=== PATIENT | male | born 1945 | race Caucasian/White ===

== ENCOUNTER 2017-04-13 10:12 | Observation (INO) | payer OTHER ==
[~2017-04-13] VITALS: Ht 182.9 cm; Wt 106.5 kg
[~2017-04-13 10:12] MED LIST: AMARYL4 MG PO; BACTRIM,SEPT1 TABLET PO; BENTYL20 MG PO; CEPHALEXIN500 MG PO; GLUCOPHAGE500 MG PO; LANTUS 10100 UNITS/ SC; LIPITOR10 MG PO; LOTREL 10/21 CAPSULE PO; LOTREL 5-40 MG1 EACH PO; METFORMIN HCL1000 MG PO; PRILOSEC20 MG PO; ZOFRAN4 MG PO
[2017-04-13 11:13] LABS: HEMATOCRIT 33.1 % (38.0-50.0); MCH 32.1 PG (29.0-34.0); MCHC 35.3 G/DL (30.0-36.0); MCV 90.9 FL (86-99); MEAN PLAT.VOLUME 9.4 uM^3 (9.0-12.4); PLATELET COUNT 222 K/uL (156-360); RBC DIS.WIDTH-CV 12.1 % (11.8-14.6); RBC DIS.WIDTH-SD 39.8 % (39-53); RED BLOOD COUNT 3.64 M/uL (4.00-5.50); WHITE BLOOD COUNT 6.4 K/uL (4.1-10.2)
[2017-04-13 11:24] LABS: CHLORIDE 106 mEq/L (99-109); POTASSIUM 5.3 mEq/L (3.7-5.4); SODIUM 141 mEq/L (136-147)
[2017-04-13 11:26] LABS: GLUCOSE 279 mg/dL (70-99)
[2017-04-13 11:27] LABS: ANION GAP 8 MEQ/L (2-14)
[2017-04-13] MEDS ORDERED: ACID REDUCER 1150 MG PO (11:27)
[2017-04-13 11:28] LABS: TOTAL BILIRUBIN 1.3 mg/dL (0.0-1.0)
[2017-04-13] MEDS ORDERED: LANTUS 3 M100 UNITS1 SC (11:28)
[2017-04-13 11:30] LABS: ALKALINE PHOSPHATASE 68 IU/L (3-129); GFR ESTIMATE (CALCULATED) > 59 mL/min/
[2017-04-13 11:31] LABS: UREA NITROGEN (BUN) 28 mg/dL (9-23)
[2017-04-13 15:26] VITALS: BP 126/73
[2017-04-13 16:56] LABS: HEMATOCRIT 28.6 % (38.0-50.0); MCV 90.2 FL (86-99)
[2017-04-13 17:37] LABS: POINT-OF-CARE METER ID UU13113831
[2017-04-13 20:20] VITALS: BP 129/92
[2017-04-13 22:41] LABS: HEMATOCRIT 26.3 % (38.0-50.0); MCV 90.1 FL (86-99)
[2017-04-13 23:00] VITALS: BP 117/67
[2017-04-14 00:04] LABS: POINT-OF-CARE METER ID UU13113831
[2017-04-14 03:42] VITALS: BP 136/68
[2017-04-14 05:39] LABS: HEMATOCRIT 26.5 % (38.0-50.0); MCHC 36.2 G/DL (30.0-36.0); MCV 91.1 FL (86-99); MEAN PLAT.VOLUME 9.4 uM^3 (9.0-12.4); PLATELET COUNT 170 K/uL (156-360); RBC DIS.WIDTH-CV 12.4 % (11.8-14.6); RBC DIS.WIDTH-SD 40.6 % (39-53); WHITE BLOOD COUNT 5.2 K/uL (4.1-10.2)
[2017-04-14 05:57] LABS: ALKALINE PHOSPHATASE 51 IU/L (3-129); ANION GAP 6 MEQ/L (2-14); CHLORIDE 108 MEQ/L (99-109); GFR ESTIMATE (CALCULATED) > 59 mL/min/; GLUCOSE 171 mg/dL (70-99); POTASSIUM 4.7 MEQ/L (3.7-5.4); SAMPLE HEMOLYSIS CHECK 0; SAMPLE ICTERIC CHECK 0; SAMPLE LIPEMIA CHECK 0; SODIUM 140 MEQ/L (136-147); TOTAL BILIRUBIN 1.3 MG/DL (0.0-1.0); UREA NITROGEN (BUN) 18 mg/dL (9-23)
[2017-04-14 06:11] LABS: POINT-OF-CARE METER ID UU13113700
[2017-04-14 06:32] LABS: RED BLOOD COUNT 2.91 M/uL (4.00-5.50)
[2017-04-14 09:15] VITALS: BP 127/76
[2017-04-14 10:48] VITALS: BP 126/76
[2017-04-14 10:57] LABS: HEMATOCRIT 27.3 % (38.0-50.0); MCV 90.1 FL (86-99)
[2017-04-14 11:56] LABS: POINT-OF-CARE METER ID UU13113831
[2017-04-17] MEDS ORDERED: STOMACH MED PO (16:11)
== END 2017-04-14 13:54 | disposition home or self-care (01) ==
LOC: EME 10:12 → EDOF 13:58 → ENRESERV 14:01 → 5WEST 15:22
PROVIDERS: Internal Medicine
DX: K92.2 Gastrointestinal hemorrhage, unspecified (principal); I10 Essential (primary) hypertension; E11.65 Type 2 diabetes mellitus with hyperglycemia; L80 Vitiligo; D62 Acute posthemorrhagic anemia; Z87.19 Personal history of other diseases of the digestive system; Z82.49 Family history of ischemic heart disease and other diseases of the circulatory system; Z79.1 Long term (current) use of non-steroidal anti-inflammatories (NSAID); Z79.4 Long term (current) use of insulin; Z79.84 Long term (current) use of oral hypoglycemic drugs
CPT/HCPCS: 80053; 82948; 85014; 85018; 85027; 86900; 86901; 99281; 99285; C9113; G0378; J7030